=== PATIENT | male | born 1980 | race Caucasian/White ===

== ENCOUNTER 2022-04-09 08:08 | Emergency (ER) | payer OTHER, SELFPAY ==
[2022-04-09 08:19] VITALS: BP 119/78; PULSE 92; RESP 16; TEMP 37.2; O2SAT 99
--- NOTE | 2022-04-09 08:38 | ED.URI ---
HPI - URI/Sore Throat General Chief Complaint: Upper Respiratory Infection Stated Complaint: cough congestion headache Source: patient Mode of arrival: ambulatory Limitations: no limitations History of Present Illness HPI Narrative: 41-year-old male presents to [facility] with complaints of sinus pressure, nasal congestion, runny nose, headache and cough for the past 7-10 days. Patient reports that he feels that the symptoms worsened yesterday. Patient reports he has a history of mono and symptoms of similar. Patient reports that his was recently ill with cold-like symptoms. Patient denies shortness of breath, wheezing, nausea, vomiting or diarrhea. Patient has been taking [id number] cold medications with minimal relief. MD elicited complaint: cough, rhinorrhea, nasal congestion and sinus pain Onset (ago): day(s) (-) Description of mucous: clear Able to tolerate fluids by mouth: Yes Associated symptoms: rhinorrhea and nasal congestion Treatments prior to arrival: cold medicine Related Data Allergies Allergy/AdvReac Type Severity Reaction Status Date / Time No Known Allergies Allergy Verified 04/09/22 08:35 Review of Systems Constitutional: Constitutional: Reports chills, Denies fatigue, Denies fever(s) and Denies weakness ENT: Denies vertigo, Denies dizziness and Reports nasal congestion Cardiovascular: Cardiovascular: Denies chest pain Respiratory: Respiratory: Reports cough, Denies dyspnea and Denies wheezing Gastrointestinal: Gastrointestinal: Denies diarrhea, Denies nausea and Denies vomiting Integumentary/Breasts: Skin/Breast: Denies rash Neurologic: Denies vertigo and Denies dizziness PMFSH Comments At time of signature, I agree with nursing past medical, surgical, social and family history. There is no relevant family history pertinent to the presenting complaint. Exam Const: General: healthy appearing Nutritional Appearance: well nourished Orientation/consciousness: patient oriented x3 Limitations: no limitations HENMT: Head: normal to inspection Ears: external ears normal Face/Nose/Sinus: Nasal discharge present clear Face and sinus: sinus tenderness frontal Mouth: Yes lip normal and Yes moist mucous membranes Teeth and gingiva: dentition normal Throat: posterior oropharynx normal and uvula midline Other: Moderate nasal congestion noted with scant amount of clear nasal drainage noted. Neck: Neck: normal visual inspection Resp: Effort & Inspection: normal respiratory effort and not labored Auscultation: clear to auscultation bilaterally, no crackles, no rales, no rhonchi and no wheezes Cardio: Rate: regular rate Rhythm: regular rhythm Heart sounds: no murmurs Skin: General skin exam: normal color Rashes: no rashes Wounds: no wounds Neuro: General: patient oriented x3 Speech: normal speech Gait exam (Neuro): Normal gait present Psych: Affect: normal affect Attitude: cooperative Course Course Level of Care: Express Care Visit Vital Signs Vital signs: Vital Signs Temperature 37.2 C 04/09/22 08:19 Pulse Rate 92 04/09/22 08:19 Respiratory Rate 16 04/09/22 08:19 Blood Pressure 119/78 04/09/22 08:19 Pulse Oximetry 99 04/09/22 08:19 Oxygen Delivery Room Air 04/09/22 08:19 Temperature 37.2 C 04/09/22 08:19 Pulse Rate 92 04/09/22 08:19 Respiratory Rate 16 04/09/22 08:19 Blood Pressure 119/78 04/09/22 08:19 Pulse Oximetry 99 04/09/22 08:19 Oxygen Delivery Room Air 04/09/22 08:19 MDM - URI/Sore Throat MDM Narrative Medical decision making narrative: Patient agrees to continue cold medications as needed. Patient agrees to take antibiotic as prescribed. Patient agrees to use Flonase daily. Patient agrees to follow-up with primary care provider if symptoms do not improved. Differential Diagnosis Differential diagnosis: Likely otitis media, viral infection and bronchitis Lab Data Labs: Influenza A Screen
== END 2022-04-09 09:10 | disposition home or self-care (01) ==
PROVIDERS: Emergency Provider Nurse Practitioner Family
DX: J32.9 Chronic sinusitis, unspecified (principal)
CPT/HCPCS: 36416; 86308; 87804; 99213; G0463